=== PATIENT | male | born 1975 | race American Indian/Alaskan Native ===

== ENCOUNTER 2016-07-14 11:35 | Emergency (ER) | payer OTHER ==
[2016-07-14 12:28] LABS: Basophils % (Auto) 0.4 % (0.0-1.8); Hematocrit 45.7 % (35.5-45.6); Hemoglobin 14.3 gm/dl (11.8-15.2); Mean Corpuscular HGB Conc 31 % (32-34); Mean Corpuscular Volume 80 fl (84-94); Platelet Count 227 K/mm3 (140-440); Red Blood Count 5.68 M/mm3 (3.65-5.03); Red Cell Distribution Width 15.2 % (13.2-15.2); White Blood Count 7.6 K/mm3 (4.5-11.0)
[2016-07-14 12:29] LABS: Mean Corpuscular Hemoglobin 25 pg (28-32)
[2016-07-14 12:46] LABS: Anion Gap 20 mmol/L; BUN/Creatinine Ratio 6.15; Blood Urea Nitrogen 8 mg/dL (9-20); Calcium 9.3 mg/dL (8.4-10.2); Carbon Dioxide 27 mmol/L (22-30); Chloride 103.2 mmol/L (98-107); Glucose 101 mg/dL (75-100); Potassium 3.8 mmol/L (3.6-5.0); Sodium 146 mmol/L (137-145)
--- NOTE | 2016-07-14 13:19 | XRay Report ---
ROUTINE CHEST, TWO VIEWS: HISTORY: Short of breath. The trachea, heart, mediastinal contour, lung becerra and bony thorax are unremarkable. IMPRESSION: Unremarkable chest x-ray.
[2016-07-14] MEDS ORDERED: PROVENTIL IH ONE ×2 (18:21→18:22)
[2016-07-14] MEDS ORDERED: ATROVENT IH ONE ×2 (18:22)
[2016-07-14 19:08] VITALS: BP 164/112
--- NOTE | 2016-07-14 19:54 | Emergency Department Report ---
HPI - General Chief Complaint: Dyspnea/Respdistress Time Seen by Provider: 07/14/16 18:50 - HPI HPI: Patient is a 41-year-old male with a history of asthma on albuterol inhaler and nebulizers presented to the ED complaining of chest tightness and greenish yellowish productive cough 3 weeks. Patient states over the past 2 weeks he is unable to take his albuterol but ran out this morning. Patient states symptoms worsened this morning and he had some difficulty breathing. Patient states he has had some yellowish greenish sputum productive cough. Patient denies fever/chills/nausea/vomiting/abdominal pain/diarrhea or constipation. ED Past Medical Hx - Past Medical History Hx Congestive Heart Failure: No Hx Diabetes: No Hx Asthma: Yes Hx COPD: No Additional medical history: pneumothorax - Surgical History Additional Surgical History: unknown - Social History Smoking Status: Unknown if ever smoked Substance Use Type: None - Medications Home Medications: Home Medications Medication Instructions Recorded Confirmed Last Taken Type Budesonide [Pulmicort Respules] 0.5 mg IH Q12HRT 30 Days 03/21/14 Unknown Rx Montelukast [Singulair] 10 mg PO QHS #30 tablet 03/21/14 Unknown Rx Prednisone 10 mg PO BID #22 tablet 03/21/14 Unknown Rx ALBUTEROL Inhaler [ProAir HFA 2 puff IH QID PRN #1 pump 07/14/16 Unknown Rx Inhaler] Ipratropium/Albuterol Sulfate 1 ampul IH Q4HRT 30 Days 07/14/16 Unknown Rx [Duoneb 0.5 mg-3 mg/3 ml Soln] Levofloxacin [Levaquin TAB] 500 mg PO QDAY #6 tablet 07/14/16 Unknown Rx predniSONE [Deltasone] 20 mg PO QDAY #6 tab 07/14/16 Unknown Rx ED Review of Systems ROS: Stated complaint: SOB/WHEEZING/LIGHT HEADACHE Other details as noted in HPI Constitutional: denies: chills, fever Eyes: denies: eye pain, eye discharge, vision change ENT: denies: ear pain, throat pain Respiratory: cough (productive). denies: shortness of breath, SOB with exertion , stridor, wheezing Cardiovascular: denies: chest pain, palpitations Endocrine: no symptoms reported Gastrointestinal: denies: abdominal pain, nausea, vomiting, diarrhea Genitourinary: denies: urgency, dysuria Musculoskeletal: denies: back pain, joint swelling, arthralgia, myalgia Skin: denies: rash, lesions Neurological: denies: headache, weakness, numbness, paresthesias, confusion, abnormal gait Psychiatric: denies: anxiety, depression Hematological/Lymphatic: denies: easy bleeding, easy bruising Physical Exam - Physical Exam Vital Signs: Vital Signs 07/14/16 07/14/16 07/14/16 11:57 18:30 19:07 Temperature 99.7 F H Pulse Rate 96 H 110 H Pulse Rate [ 100 H Bilateral Upper Lobe] Respiratory 20 20 Rate Respiratory 22 Rate [Bilateral Upper Lobe] Blood Pressure 139/95 Blood Pressure 164/112 [Right] O2 Sat by Pulse 98 98 Oximetry 07/14/16 19:10 Temperature Pulse Rate Pulse Rate [ 110 H Bilateral Upper Lobe] Respiratory Rate Respiratory 20 Rate [Bilateral Upper Lobe] Blood Pressure Blood Pressure [Right] O2 Sat by Pulse Oximetry Physical Exam: GENERAL: Alert and oriented x3, no apparent distress, Normal Gait, atraumatic. HEAD: Head is normocephalic and a-traumatic. EYES: Extra ocular muscles are intact. Pupils are equal, round, and reactive to light and accommodation. EARS: symetrical, atraumatic, non tender, ear canal clear and moderate cerumen, tympanic membrance non inflamed. gross auditory nml bilaterally. NOSE: Nose symetrical, Nontender,Nares appeared normal. MOUTH:Mouth is well hydrated and without lesions. Tonsils nonerythematous or swollen, Uvula midline, Tongue not elevated. Mucous membranes are moist. Posterior pharynx clear, no exudate or lesions. Patent airways. NECK: Supple. Non edematous, No carotid bruits. No lymphadenopathy or thyromegaly. LUNGS: Symetrical with respiration, No wheezing bilaterally, no rales or crackles, CTAB. HEART: S1, S2 present, regular rate and rhythm without murmur, no rubs, no gallops. ABDOMEN: No organomegaly was noted,Positive bowel sounds, soft, and non- distended. . Nontender to palpation on all Quadrants, NO CVA tenderness. EXTREMITIES/MUSCULOSKELETAL: No cyanosis, clubbing, rash, lesions or edema. Full ROM bilaterally. UE/LE Pulses 2+ bilaterally. NEUROLOGIC: No focal Deficit, Cranial nerves II through XII are grossly intact. No loss of sensation, No facial droop, PSYCHIATRIC: Mood is congruent with affect, denies suicidal or homicidal ideations. SKIN: Warm and dry, No lesions, No ulceration or induration present. ED Course Vital Signs 07/14/16 07/14/16 07/14/16 11:57 18:30 19:07 Temperature 99.7 F H Pulse Rate 96 H 110 H Pulse Rate [ 100 H Bilateral Upper Lobe] Respiratory 20 20 Rate Respiratory 22 Rate [Bilateral Upper Lobe] Blood Pressure 139/95 Blood Pressure 164/112 [Right] O2 Sat by Pulse 98 98 Oximetry 07/14/16 19:10 Temperature Pulse Rate Pulse Rate [ 110 H Bilateral Upper Lobe] Respiratory Rate Respiratory 20 Rate [Bilateral Upper Lobe] Blood Pressure Blood Pressure [Right] O2 Sat by Pulse Oximetry ED Medical Decision Making - Lab Data Result diagrams: 07/14/16 12:19 07/14/16 12:16 - EKG Data EKG shows normal: sinus rhythm Rate: tachycardia - EKG Data When compared to previous EKG there are: no significant change Interpretation: normal EKG - Medical Decision Making 41-year-old male presents with asthma exacerbation. ED course: Patient received a 1 treatment of albuterol and second treatment of Atrovent. Lung exam after 2 breathing treatments: No wheezing. Breath sounds clear to auscultation bilaterally. Patient states he feels much better. O2 sat at 98%. vital signs stable. She is in no acute respiratory distress. Chest x-ray: Normal chest x-ray, CBC, BMP within normal limits. Discussed results with patient. Patient is showing no signs of distress Discussed with patient follow-up with her primary care physician for continued management of asthma. Discussed to take inhalers when needed. Discuss to take medication as prescribed. Patient verbally states he understands and will comply to follow-up. She is in no acute distress sets of patient care discharged to go home with instructions to follow up with primary care physician. Critical care attestation.: If time is entered above; I have spent that time in minutes in the direct care of this critically ill patient, excluding procedure time. ED Disposition Clinical Impression: Acute asthma exacerbation Qualifiers: Asthma severity: mild intermittent Qualified Code(s): J45.21 - Mild intermittent asthma with (acute) exacerbation URI (upper respiratory infection) Qualifiers: URI type: unspecified URI Qualified Code(s): J06.9 - Acute upper respiratory infection, unspecified Disposition: DISCHARGED TO HOME OR SELFCARE Is pt being admited?: No Does the pt Need Aspirin: No Condition: Stable Instructions: Asthma (ED), Upper Respiratory Infection (ED) Additional Instructions: Take your Medication as prescribed Follow-up with primary care physician. If symptoms worsen return to ED. Prescriptions: ALBUTEROL Inhaler [ProAir HFA Inhaler] 2 puff IH QID PRN #1 pump PRN Reason: Shortness Of Breath Ipratropium/Albuterol Sulfate [Duoneb 0.5 mg-3 mg/3 ml Soln] 1 ampul IH Q4HRT 30 Days Levofloxacin [Levaquin TAB] 500 mg PO QDAY #6 tablet predniSONE [Deltasone] 20 mg PO QDAY #6 tab Referrals: PRIMARY CARE, [Primary Care Provider] - 3-5 Days [facility] [Outside] - 3-5 Days [facility] [Outside] - 3-5 Days [facility] [Outside] - 3-5 Days Forms: Work/School Release Form(ED) Time of Disposition: 20:18
== END 2016-07-14 20:53 | disposition home or self-care (01) ==
LOC: ED 11:35
DX: J45.21 Mild intermittent asthma with (acute) exacerbation (principal); J06.9 Acute upper respiratory infection, unspecified
CPT/HCPCS: 36415; 71020; 80048; 84484; 85025; 93005; 93010; 94640; 96372; 99284; J2930